=== PATIENT | female | born 1985 | race Two or more races ===

== ENCOUNTER 2020-09-22 08:41 | Outpatient (CLI) | payer OTHER ==
[~2020-09-22 08:41] MED LIST: TYLENOL-CODEINE1 TAB PO
== END 2020-09-22 08:51 | disposition home or self-care (01) ==
LOC: SONOGRAMA 08:41
DX: R10.2 Pelvic and perineal pain (principal); R10.84 Generalized abdominal pain; L92.8 Other granulomatous disorders of the skin and subcutaneous tissue